=== PATIENT | female | born 1985 | race Caucasian/White ===

== ENCOUNTER 2022-03-19 17:01 | Inpatient (IN) | payer OTHER ==
[~2022-03-19] VITALS: Ht 175.3 cm; Wt 120.2 kg
[2022-03-19 18:06] LABS: HEMOGLOBIN 10.9 gm/dl (12.3-15.3); RED BLOOD COUNT 3.98 M/UL (4.00-5.10); WHITE BLOOD COUNT 14.7 K/UL (4.5-11.0)
[2022-03-20] MEDS ORDERED: DEXILANT60 MG PO (00:50)
[2022-03-20] MEDS ORDERED: LABETALOL HCL100 MG PO (00:50)
[2022-03-21] MEDS ORDERED: FERROUS SULFAT325 MG PO (06:50)
[2022-03-21] MEDS ORDERED: IBUPROFEN600 MG PO (06:50)
[2022-03-21] MEDS ORDERED: PERCOCET 5/325 T1 EA PO (06:50)
[2022-03-21] MEDS ORDERED: COLACE100 MG PO (06:50)
[2022-03-21 09:22] LABS: HEMOGLOBIN 9.9 gm/dl (12.3-15.3); WHITE BLOOD COUNT 17.1 K/UL (4.5-11.0)
[2022-03-21 09:23] LABS: RED BLOOD COUNT 3.58 M/UL (4.00-5.10)
[2022-03-23] MEDS ORDERED: MACROBID 100 M100 MG PO (12:38)
[2022-03-23] MEDS ORDERED: LABETALOL HCL100 MG PO (12:38)
== END 2022-03-23 15:18 | disposition home or self-care (01) | DRG 786 ==
LOC: GENOP 17:01 → OB 17:20
PROVIDERS: Obstetrics & Gynecology; ADMIT Obstetrics & Gynecology
PROC: 10907ZC Drainage of Amniotic Fluid, Therapeutic from Products of Conception, Via Natural or Artificial Opening (ICD-10-PCS; 2022-03-21)
PROC: 4A1H7CZ Monitoring of Products of Conception, Cardiac Rate, Via Natural or Artificial Opening (ICD-10-PCS; 2022-03-21)
PROC: 10H073Z Insertion of Monitoring Electrode into Products of Conception, Via Natural or Artificial Opening (ICD-10-PCS; 2022-03-21)
PROC: 0UH97HZ Insertion of Contraceptive Device into Uterus, Via Natural or Artificial Opening (ICD-10-PCS; 2022-03-21)
PROC: 3E033VJ Introduction of Other Hormone into Peripheral Vein, Percutaneous Approach (ICD-10-PCS; 2022-03-21)
PROC: 3E0DXGC Introduction of Other Therapeutic Substance into Mouth and Pharynx, External Approach (ICD-10-PCS; 2022-03-21)
PROC: 3E0234Z Introduction of Serum, Toxoid and Vaccine into Muscle, Percutaneous Approach (ICD-10-PCS; 2022-03-21)
PROC: 10D00Z1 Extraction of Products of Conception, Low, Open Approach (ICD-10-PCS; principal; 2022-03-21 05:48)
DX: O76 Abnormality in fetal heart rate and rhythm complicating labor and delivery (principal); O41.1230 Chorioamnionitis, third trimester, not applicable or unspecified; O10.92 Unspecified pre-existing hypertension complicating childbirth; N39.0 Urinary tract infection, site not specified; O86.20 Urinary tract infection following delivery, unspecified; O99.214 Obesity complicating childbirth; O99.344 Other mental disorders complicating childbirth; O36.63X0 Maternal care for excessive fetal growth, third trimester, not applicable or unspecified; F41.9 Anxiety disorder, unspecified; D64.9 Anemia, unspecified; E66.9 Obesity, unspecified; Z37.0 Single live birth; O99.02 Anemia complicating childbirth; Z3A.37 37 weeks gestation of pregnancy; Z28.310 Unvaccinated for COVID-19; Z82.49 Family history of ischemic heart disease and other diseases of the circulatory system; Z83.3 Family history of diabetes mellitus; Z82.5 Family history of asthma and other chronic lower respiratory diseases; Z81.8 Family history of other mental and behavioral disorders; Z23 Encounter for immunization
CPT/HCPCS: 36415; 81001; 82800; 85014; 85018; 85025; 87077; 87086; 87186; 90715; C9113; J0690; J1170; J1580; J1885; J2250; J2405; J2590; J2704; Q0177